=== PATIENT | male | born 1975 | race Caucasian/White ===

== ENCOUNTER → 2023-12-24 | Outpatient (CLI) | payer BC ==
--- NOTE | 2023-12-26 22:21 | MR ---
EXAMINATION TYPE: MR knee RT wo con DATE OF EXAM: 12/24/2023 COMPARISON: NONE HISTORY: Right knee medial pain, weakness and swelling TECHNIQUE: Multiplanar, multisequence images of the knee is performed without IV contrast. FINDINGS: MEDIAL MENISCUS: Medial extrusion medial meniscus on coronal images. Horizontal and oblique signal po sterior horn medial meniscus extends to inferior articular surface sagittal image 8. LATERAL MENISCUS: Anterior and posterior horns are intact without tear. CRUCIATE LIGAMENTS: The anterior and posterior cruciate ligaments are intact and unremarkable. COLLATERAL LIGAMENTS: The medial collateral ligament and lateral collateral ligament complex are inta ct and unremarkable. EXTENSOR MECHANISM: Visualized quadriceps and patellar tendons are intact. EFFUSION: [id number] size suprapatellar joint effusion. POPLITEAL CYST: No popliteal/acosta cyst. TRICOMPARTMENT SPACES: Ploe-nx-bjddllme joint space loss and spurring medial and lateral tibiofemoral compartments. Moderate to severe narrowing in the patellofemoral compartment with minimal spurring. CARTILAGE: Chondromalacia patella with significant cartilaginous loss along the posterior lower pole. Large focal osteochondral defect lateral aspect distal medial femoral condyle measuring 12 mm transv ersely coronal image 21 x 19 mm AP diameter sagittal image 14 BONE MARROW SIGNAL: Some heterogeneous increased T2 signal involving the distal medial femoral condyl e. OTHER: No additional significant abnormality is appreciated. IMPRESSION: 1. Small to moderate-sized suprapatellar joint effusion. 2. Full-thickness tear posterior horn of medial meniscus. 3. Tricompartment degenerative changes most prominent patellofemoral and medial tibiofemoral compartm ents as detailed above.
== END | disposition home or self-care (01) ==
LOC: RADMRIMAIN 19:22
PROVIDERS: ATTEND Orthopaedic Surgery
DX: S83.241A Other tear of medial meniscus, current injury, right knee, initial encounter (principal); M25.461 Effusion, right knee; M17.11 Unilateral primary osteoarthritis, right knee; X58.XXXA Exposure to other specified factors, initial encounter

== ENCOUNTER → 2024-03-22 | Outpatient (CLI) | payer BC ==
[2024-03-22 10:34] LABS: Basophils # (A) 0.05 X 10*3/uL (0.00-0.10); Eosinophils # (A) 0.15 X 10*3/uL (0.04-0.35); Eosinophils % (A) 2.9 %; HCT 44.5 % (39.6-50.0); HGB 14.9 g/dL (13.0-17.0); Lymphocytes # (A) 1.32 X 10*3/uL (0.90-5.00); Lymphocytes % (A) 25.7 %; MCH 31.4 pg (27.0-32.0); MCHC 33.5 g/dL (32.0-37.0); MCV 93.7 FL (80.0-97.0); Mean Platelet Volume 9.3 FL (9.5-12.2); Monocytes # (A) 0.49 X 10*3/uL (0.20-1.00); Monocytes % (A) 9.5 %; NRBC Per 100 WBC 0 X 10*3/uL (0.00-0.01); Neutrophils # (A) 3.11 X 10*3/uL (1.80-7.70); Neutrophils % (A) 60.5 %; Platelet Count 208 X 10*3/uL (140-440); RBC 4.75 X 10*6/uL (4.40-5.60); RDW 13.2 % (11.5-14.5); WBC 5.14 X 10*3/uL (4.50-10.00)
[2024-03-22 10:35] LABS: Blood Urea Nitrogen 13.7 mg/dL (9.0-27.0); Calcium 9.7 mg/dL (8.7-10.3); Carbon Dioxide 28.1 mmol/L (21.6-31.8); Chloride 107 mmol/L (96-109); Glucose 100 mg/dL (70-110); Potassium 4.6 mmol/L (3.5-5.5); Sodium 147 mmol/L (135-145)
== END | disposition home or self-care (01) ==
LOC: LABPAT 07:21
PROVIDERS: ATTEND Orthopaedic Surgery
DX: Z01.818 Encounter for other preprocedural examination (principal); M23.91 Unspecified internal derangement of right knee; I45.10 Unspecified right bundle-branch block; R00.1 Bradycardia, unspecified
CPT/HCPCS: 36415; 80048; 85025; 93005

== ENCOUNTER 2024-04-04 09:04 | Day surgery (SDC) | payer BC ==
--- NOTE | 2024-04-03 08:32 | P.HPOR ---
History of Present Illness H&P Date: 04/03/24 Chief Complaint: Right knee pain The patient is a 48-year-old male who presents with progressive right knee pain after an injury in November of this year. He notes he's had locking and catching ever since. He's been using medications along with a knee sleeve with partial relief. He notes daily pain that limits him. Review of Systems As per HPI Past Medical History Past Medical History: No Reported History History of Any Multi-Drug Resistant Organisms: None Reported Past Surgical History: Orthopedic Surgery Additional Past Surgical History / Comment(s): lft knee arthroscopy, Past Anesthesia/Blood Transfusion Reactions: No Reported Reaction Smoking Status: Never smoker - Past Family History Mother Family Medical History: Cancer Additional Family Medical History / Comment(s): lung Medications and Allergies Home Medications Medication Instructions Recorded Confirmed Type No Known Home Medications 03/31/24 03/31/24 History Allergies Allergy/AdvReac Type Severity Reaction Status Date / Time No Known Allergies Allergy Verified 03/31/24 11:16 Physical Examination - Knee right Appearance: effusion Effusion grade: grade 1 Varus alignment in stance: 5 degrees Tenderness with palpation: anterior, medial Pain: throughout ROM Gait: limping ROM: extension: -10 degrees ROM: flexion: 110 degrees Crepitus with motion: Yes Strength: extension: 5/5 Strength: flexion: 5/5 Meniscal tests: medial meniscal tests: positive, medial joint line pain: positive Results The patient is a well-developed well-nourished male approximately 6 foot 3, 225 pounds a mesomorphic habitus. HEENT exam is nonfocal, neck is supple. He has painless passive motion of the right hip. Straight leg raise is negative. He is tender about the medial joint line of the right knee. Collaterals are stable, Evita was negative, Caridad's elicits medial pain. He has an antalgic gait pattern. His distal neurovascular appears intact in the right lower extremity. - Diagnostic results Knee MRI: image reviewed (MRI of the right knee shows evidence of a posterior medial meniscal tear along with osteochondral defect involving the lateral aspect of medial femoral condyle. Degenerative changes involving the patellofemoral articulation are also noted.) Assessment and Plan Assessment: Right knee internal derangement/medial femoral condyle osteochondral defect/possible loose body Right knee medial meniscal tear Right knee medial compartment degenerative joint disease Plan: I talked to the patient at length regarding his condition along with treatment options. This point is having pain and mechanical symptoms despite attempted co nservative measures. After a thorough discussion, he opted to proceed with surgery. We'll proceed with right knee arthroscopy with possible partial medial meniscectomy/possible microfracture medial femoral condyle/possible loose body removal. Risks and benefits were discussed at length in layman's terms. We will likely perform this as an outpatient procedure.
[~2024-04-04 09:04] MED LIST: HYDROmorphone 0.5 MG/0.5 ML SYRINGE IVP PRN
[2024-04-04] MEDS: IV FLUID CONTINUATION 1,000 ML IV ONE (09:25)
[2024-04-04] MEDS: LACTATED RINGERS 1,000 ML IV SCH (09:38)
[2024-04-04] MEDS: ONDANSETRON 4 MG/2 ML VIAL IVP ONE (09:38)
[2024-04-04] MEDS: DEXAMETHASONE SOD PHOSPHATE 4 MG/ML 1 ML VIAL IV ONE (09:38)
[2024-04-04] MEDS ORDERED: PROPOFOL 10 MG/ML 20 ML VIAL IV ONE (09:45)
[2024-04-04] MEDS ORDERED: LIDOCAINE 1% INJ 10MG/ML (20 ML MDV) ONE (09:45)
[2024-04-04] MEDS ORDERED: fentaNYL (PF) 50 MCG/ML 2 ML AMP ONE (09:45)
[2024-04-04] MEDS ORDERED: MIDAZOLAM 2 MG/2 ML VIAL ONE (09:45)
[2024-04-04] MEDS ORDERED: HYDROmorphone (PF) 1 MG/ML ONE (09:45)
[2024-04-04 09:49] VITALS: RESP 16
[2024-04-04] MEDS: EPINEPHrine (PF) 1 ML in SODIUM CHLORIDE 0.9% IRRIGATIO 3,000 ML IRRIGATION ONE (09:50)
[2024-04-04] MEDS: LACTATED RINGERS 1,000 ML IV ONE (10:33)
--- NOTE | 2024-04-04 10:41 | P.OP ---
Date of Procedure: 04/04/24 Preoperative Diagnosis: Right knee internal derangement Postoperative Diagnosis: Right knee posterior medial meniscal tear, grade 4 chondral defect 14 x 14 mm posterior central medial femoral condyle Procedure(s) Performed: Right knee arthroscopic partial medial meniscectomy/microfracture medial femoral condyle Anesthesia: STEFFANY Surgeon: Denny Mata Estimated Blood Loss (ml): 10 Pathology: none sent Condition: stable Disposition: PACU Indications for Procedure: The patient is a 48-year-old male who presents with progressive right knee pain and mechanical symptoms after previous twisting injury. He tried conservative measures with persistence of his symptoms. He was noted to have significant medial compartment osteoarthrosis along with a medial femoral condyle osteochondral defect. A discussion of the risks and benefits of operative intervention versus continued conservative measures was made with the patient. He opted to proceed with arthroscopy. Specific risks of surgery to include infection, neurovascular injury, development of blood clots, possible incomplete resolution of symptoms, possible worsening of symptoms and progression of his osteoarthrosis with need for possible subsequent procedures was discussed. Informed consent was obtained. Operative Findings: As below Description of Procedure: The patient was brought to the operating room, and after induction of general anesthesia examined the right knee. Collaterals were stable, Evita was negative, and posterior drawer was negative. The right lower extremity was prepped and draped in a normal fashion. A superior lateral portal was made through a 3 mm skin incision superior and lateral to the patella. This was used for outflow. A lateral portal was made through a 5 mm vertical skin incision lateral to the patella tendon above the joint line. Diagnostic arthroscopy was performed. On inspection of the medial compartment, a complex tear involving the posterior horn of the medial meniscus in the white-red junction was noted. This was debrided back to stable base with straight baskets and a motorized shaver. Remaining medial meniscus was stable and intact. A grade 4 chondral defect involving the central posterior portion of the medial femoral condyle was noted measuring 14 x 14 mm. Microfracture was performed with a pick breaching the subchondral surface down to the bone marrow elements. On inspection of the notch, the anterior cruciate ligament appeared to be intact. On inspection of the lateral compartment, no significant meniscal or cartilage pathology was noted. On inspection of the patellofemoral articulation there was grade 2-3 chondral changes diffusely. The gutters were clear debris. The knee was then thoroughly irrigated. The portals were closed with Steri-Strips. A sterile dressing was applied in addition to a compression stocking. The patient was awoken from general anesthesia and transferred to recovery room in good condition. Blood loss was estimated at 10 mL. No complications were incurred.
[2024-04-04 10:53] VITALS: TEMP 97.5
[2024-04-04 12:31] VITALS: BP 146/89; PULSE 56
== END 2024-04-04 12:34 | disposition home or self-care (01) ==
LOC: OR 09:04
PROVIDERS: ATTEND Orthopaedic Surgery
DX: S83.231A Complex tear of medial meniscus, current injury, right knee, initial encounter (principal); M17.11 Unilateral primary osteoarthritis, right knee; M22.41 Chondromalacia patellae, right knee; Z98.890 Other specified postprocedural states; X58.XXXA Exposure to other specified factors, initial encounter
CPT/HCPCS: 29881; 29879; J2250; J1100; J0690; J2405; J0171; J2001; J3010; J1170; J2704